=== PATIENT | female | born 1970 | race Caucasian/White ===

== ENCOUNTER 2016-09-29 11:09 | Emergency (ER) | payer OTHER ==
[~2016-09-29] VITALS: Ht 160 cm; Wt 97.2 kg
[~2016-09-29 11:09] MED LIST: ALLERGY MEDICIN25 M2 PO; ALLERGY RELIEF10 M1 PO; ALPRAZOLAM0.5 MG PO; ASPIRIN325 MG PO; COMPLETE ALLERG PO; DILAUDID2 MG PO; FENOFIBRATE145 M1 PO; FUROSEMIDE40 MG PO; LASIX40 MG PO; LEVEMIR FL100 UNIT/1 SC; LISINOPRIL10 MG PO; LOPRESSOR50 MG PO; METHADONE10 MG PO; NICOTINE PATCH1 EAC2 TD; NOVOLOG PE100 UNITS/ SC; OXYCODONE HCL10 MG PO; PANTOPRAZOLE SO40 MG PO; PROZAC40 MG PO; SIMVASTATIN40 MG PO; SPIRONOLACTONE50 MG PO
[2016-09-29] MEDS ORDERED: FLUOXETINE HCL40 MG PO (11:29)
[2016-09-29] MEDS ORDERED: TRESIBA FL200 UNIT/1 SC (11:30)
[2016-09-29 12:16] LABS: CHLORIDE 103 mEq/L (99-109); SODIUM 135 mEq/L (136-147)
[2016-09-29 12:18] LABS: GLUCOSE 195 mg/dL (70-99)
[2016-09-29 12:20] LABS: ANION GAP 15 MEQ/L (2-14); TOTAL BILIRUBIN 0.6 mg/dL (0.0-1.0)
[2016-09-29 12:22] LABS: ALKALINE PHOSPHATASE 112 IU/L (3-129); GFR ESTIMATE (CALCULATED) > 59 mL/min/
[2016-09-29 12:23] LABS: UREA NITROGEN (BUN) 8 mg/dL (9-23)
[2016-09-29 12:23] LABS: BASOPHIL COUNT 0.1 K/uL (0-0.1); EOSINOPHIL (%) 0.1 % (0-5); HEMATOCRIT 37.9 % (36.0-46.0); IMMATURE GRANULOCYTE (%) 0.4 % (0.0-0.7); IMMATURE GRANULOCYTE COUNT 0.1 K/uL; INSTRUMENT ABS NEUTROPHIL CT 14.2 K/uL; LYMPHOCYTE COUNT 1.5 K/uL (1.0-2.8); MCH 24.5 PG (29.0-34.0); MCHC 32.7 G/DL (30.0-36.0); MCV 74.8 FL (83-99); MEAN PLAT.VOLUME 9.6 uM^3 (9.5-12.4); MONOCYTE (%) 1.9 % (3-12); MONOCYTE COUNT 0.3 K/uL (0-0.8); NEUTROPHIL (%) 87.8 % (45-76); NEUTROPHIL COUNT 14.2 K/uL (1.8-6.4); PLATELET COUNT 260 K/uL (156-360); RBC DIS.WIDTH-CV 14.9 % (11.8-14.6); RED BLOOD COUNT 5.07 M/uL (3.80-5.20); WHITE BLOOD COUNT 16.2 K/uL (4.1-10.2)
[2016-09-29 12:25] LABS: LIPASE 16 U/L (1.0-51.0)
[2016-09-29 16:49] LABS: ADD MIUA? NO; BILIRUBIN NEGATIVE; BLOOD NEGATIVE; COLOR STRAW ((YELLOW)); GLUCOSE (STRIP) 50; KETONES 5; LEUKOCYTES NEGATIVE; NITRITE NEGATIVE; PROTEIN (STRIP) NEGATIVE; UCUL ADDED? NO; UROBILINOGEN 0.2 MG/DL (0.2-1.0)
[2016-09-29 17:21] VITALS: BP 182/132
[2016-09-29] MEDS ORDERED: TYLENOL WITH C1 EACH PO (18:47)
[2016-09-29] MEDS ORDERED: ZOFRAN ODT4 MG PO (18:49)
[2016-09-29] MEDS ORDERED: PERCOCET 5/31 TABLET PO (18:49)
== END 2016-09-29 19:37 | disposition home or self-care (01) ==
LOC: EME → EDBD 11:09 → EME 11:09
PROVIDERS: Emergency Medicine
DX: R10.10 Upper abdominal pain, unspecified (principal); G89.29 Other chronic pain; I11.0 Hypertensive heart disease with heart failure; I50.9 Heart failure, unspecified; E78.5 Hyperlipidemia, unspecified; I25.2 Old myocardial infarction; F17.200 Nicotine dependence, unspecified, uncomplicated; Z87.442 Personal history of urinary calculi
CPT/HCPCS: 74177; 76705; 80053; 81003; 83690; 85025; 93005; 99281; 99285; J2060; J2270; J2405; J7030

== ENCOUNTER 2016-10-05 19:50 | Inpatient (IN) | payer OTHER ==
[~2016-10-05] VITALS: Ht 160 cm; Wt 89.1 kg
[~2016-10-05 19:50] MED LIST changes: +FLUOXETINE HCL40 MG PO; +PERCOCET 5/31 TABLET PO; +TRESIBA FL200 UNIT/1 SC; +TYLENOL WITH C1 EACH PO; +ZOFRAN ODT4 MG PO
[2016-10-05 20:38] LABS: BASOPHIL COUNT 0.1 K/uL (0-0.1); EOSINOPHIL (%) 2.6 % (0-5); EOSINOPHIL COUNT 0.3 K/uL (0-0.3); HEMATOCRIT 40.3 % (36.0-46.0); IMMATURE GRANULOCYTE (%) 0.2 % (0.0-0.7); INSTRUMENT ABS NEUTROPHIL CT 5.5 K/uL; LYMPHOCYTE COUNT 3.3 K/uL (1.0-2.8); MCH 24.4 PG (29.0-34.0); MCHC 31.8 G/DL (30.0-36.0); MCV 76.9 FL (83-99); MEAN PLAT.VOLUME 9.6 uM^3 (9.5-12.4); MONOCYTE (%) 8.1 % (3-12); MONOCYTE COUNT 0.8 K/uL (0-0.8); NEUTROPHIL (%) 55.2 % (45-76); NEUTROPHIL COUNT 5.5 K/uL (1.8-6.4); PLATELET COUNT 262 K/uL (156-360); RBC DIS.WIDTH-CV 15.2 % (11.8-14.6); RBC DIS.WIDTH-SD 41.6 % (39-53); RED BLOOD COUNT 5.24 M/uL (3.80-5.20); WHITE BLOOD COUNT 9.9 K/uL (4.1-10.2)
[2016-10-05 20:50] LABS: CHLORIDE 101 mEq/L (99-109)
[2016-10-05 20:51] LABS: MAGNESIUM 1.9 mg/dL (1.3-2.7); POTASSIUM 3.4 mEq/L (3.7-5.4); SODIUM 137 mEq/L (136-147)
[2016-10-05 20:52] LABS: PTT 26.6 (25-32)
[2016-10-05 20:53] LABS: GLUCOSE 182 mg/dL (70-99)
[2016-10-05 20:54] LABS: ANION GAP 11 MEQ/L (2-14)
[2016-10-05 20:56] LABS: ALKALINE PHOSPHATASE 104 IU/L (3-129)
[2016-10-05 20:57] LABS: GFR ESTIMATE (CALCULATED) > 59 mL/min/
[2016-10-05 20:58] LABS: UREA NITROGEN (BUN) 17 mg/dL (9-23)
[2016-10-05 21:00] LABS: TROP-I INTERPRETATION NEGATIVE; TROPONIN-I < 0.01 ng/mL (0.0-0.30)
[2016-10-05 21:05] LABS: QUANTITATIVE HCG < 4.0 MIU/ML
[2016-10-05 21:07] LABS: TOTAL BILIRUBIN 0.3 mg/dL (0.0-1.0)
[2016-10-05] MEDS ORDERED: LITE COAT ASPI325 M1 PO (23:18)
[2016-10-05] MEDS ORDERED: LISINOPRIL20 MG PO (23:18)
[2016-10-05] MEDS ORDERED: PROTONIX40 MG PO (23:20)
[2016-10-05] MEDS ORDERED: SPIRONOLACTONE50 MG PO (23:21)
[2016-10-05] MEDS ORDERED: HYDROXYZINE HCL50 MG PO (23:21)
[2016-10-06 07:37] LABS: POINT-OF-CARE METER ID UU14174225
[2016-10-06 07:53] VITALS: BP 146/98
[2016-10-06 11:12] VITALS: BP 157/87
[2016-10-06 11:13] LABS: POINT-OF-CARE METER ID UU14188625
[2016-10-06 15:12] VITALS: BP 130/65
[2016-10-06 16:14] LABS: POINT-OF-CARE METER ID UU14174225
[2016-10-06 20:00] VITALS: BP 127/71
[2016-10-06 22:40] LABS: POINT-OF-CARE USER ID 603211116
[2016-10-07] VITALS: BP 130/73
[2016-10-07 00:54] LABS: PROTHROMBIN TIME 10.1 (9.2-11.2); PTT 25.5 (25-32)
[2016-10-07 04:00] VITALS: BP 120/79
[2016-10-07 08:04] VITALS: BP 121/73
[2016-10-07 08:31] LABS: HEMATOCRIT 38.3 % (36.0-46.0); MCH 24.6 PG (29.0-34.0); MCHC 31.9 G/DL (30.0-36.0); MCV 77.2 FL (83-99); MEAN PLAT.VOLUME 9.8 uM^3 (9.5-12.4); PLATELET COUNT 218 K/uL (156-360); RBC DIS.WIDTH-CV 15.1 % (11.8-14.6); RBC DIS.WIDTH-SD 41.3 % (39-53); RED BLOOD COUNT 4.96 M/uL (3.80-5.20); WHITE BLOOD COUNT 12.2 K/uL (4.1-10.2)
[2016-10-07 08:37] LABS: PROTHROMBIN TIME 10.2 (9.2-11.2); PTT 27.5 (25-32)
[2016-10-07 09:15] LABS: ERTH.SED.RATE 24 MM/HR (0-20)
[2016-10-07 10:05] LABS: ANION GAP 14 MEQ/L (2-14); CHLORIDE 98 MEQ/L (99-109); GFR ESTIMATE (CALCULATED) > 59 mL/min/; GLUCOSE 116 mg/dL (70-99); HDL CHOLESTEROL 30 MG/DL (Desirable>=50); LDL CHOLESTEROL 173 mg/dL (Desirable<100); NON-HDL CHOLESTEROL 226 mg/dL (Desirable<160); POTASSIUM 3.3 MEQ/L (3.7-5.4); SAMPLE HEMOLYSIS CHECK 0; SAMPLE ICTERIC CHECK 0; SAMPLE LIPEMIA CHECK 0; SODIUM 139 MEQ/L (136-147); TOTAL CHOLESTEROL 256 mg/dL (Desirable<200); TRIGLYCERIDES 265 MG/DL (Normal: <150); UREA NITROGEN (BUN) 15 mg/dL (9-23)
[2016-10-07 11:21] LABS: Estimated Average Glucose 169 mg/dL (70-123); HEMOGLOBIN A1c (GLYCOHEMOGLOB) 7.5 % HGB (Below 5.7)
[2016-10-07 13:45] VITALS: BP 131/64
[2016-10-07 19:22] VITALS: BP 140/75
[2016-10-07 20:55] LABS: PROTHROMBIN TIME 9.8 (9.2-11.2); PTT 26.4 (25-32)
[2016-10-08] VITALS: BP 117/79
[2016-10-08 04:08] VITALS: BP 128/78
[2016-10-08 07:30] VITALS: BP 136/80
[2016-10-08 08:59] LABS: PROTHROMBIN TIME 10.1 (9.2-11.2); PTT 25.3 (25-32)
[2016-10-08 11:00] VITALS: BP 120/79
[2016-10-08] MEDS ORDERED: ATORVASTATIN CA80 MG PO (12:00)
[2016-10-08] MEDS ORDERED: ELIQUIS5 MG PO (12:00)
== END 2016-10-08 14:38 | disposition home or self-care (01) | DRG 65 ==
LOC: EME 19:50 → 5SOUTH 10-06 01:51 → EDOF 10-06 01:51 → 5SOUTH 10-06 07:09
PROVIDERS: Emergency Medicine; Hospitalist; Internal Medicine; Physician Assistant Medical; Specialist
DX: I63.9 Cerebral infarction, unspecified (principal); H54.0 Blindness, both eyes; I11.0 Hypertensive heart disease with heart failure; I50.9 Heart failure, unspecified; E11.9 Type 2 diabetes mellitus without complications; M79.7 Fibromyalgia; I45.6 Pre-excitation syndrome; E78.00 Pure hypercholesterolemia, unspecified; I25.10 Atherosclerotic heart disease of native coronary artery without angina pectoris; G47.33 Obstructive sleep apnea (adult) (pediatric); I25.2 Old myocardial infarction; Z79.82 Long term (current) use of aspirin; G89.29 Other chronic pain; M06.9 Rheumatoid arthritis, unspecified; F17.210 Nicotine dependence, cigarettes, uncomplicated; E66.9 Obesity, unspecified; Z68.34 Body mass index [BMI] 34.0-34.9, adult; E78.5 Hyperlipidemia, unspecified; M25.562 Pain in left knee; H53.47 Heteronymous bilateral field defects; G81.91 Hemiplegia, unspecified affecting right dominant side
CPT/HCPCS: 36415; 70496; 70498; 70551; 73552; 73560; 73590; 80048; 80053; 80061; 81003; 82043; 82570; 82948; 83036; 83735; 84443; 84484; 84702; 85025; 85027; 85610; 85651; 85730; 92610 GN; 93005; 93306; 93312; 99281; 99285; J1650; J1815; J2060; J2250; J3010; J7030